=== PATIENT | female | born 2005 | race Caucasian/White ===

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

== ENCOUNTER 2023-01-03 12:27 | Emergency (ER) | payer OTHER, SELFPAY ==
[2023-01-03] MEDS ORDERED: Ketorolac Tromethamine 30 MG/ML VIAL ONE (13:07)
== END 2023-01-03 13:55 | disposition home or self-care (01) ==
LOC: CSHERS 12:27
DX: S89.91XA Unspecified injury of right lower leg, initial encounter (principal); W18.30XA Fall on same level, unspecified, initial encounter
CPT/HCPCS: 96372; J1885